=== PATIENT | female | born 1960 | race Caucasian/White ===

== ENCOUNTER 2020-06-22 09:59 | Inpatient (IN) | payer OTHER ==
[~2020-06-22] VITALS: Ht 170.2 cm; Wt 112.9 kg
[2020-06-22 11:03] LABS: BUN/CREATININE RATIO 18 (0-10)
[2020-06-22 11:52] LABS: HEMOGLOBIN 12.7 gm/dl (12.3-15.3); RED BLOOD COUNT 4.43 M/UL (4.00-5.10); WHITE BLOOD COUNT 7.4 K/UL (4.5-11.0)
[2020-06-22] MEDS ORDERED: VITAMIN D325 MCG PO (12:21)
[2020-06-22] MEDS ORDERED: VITAMIN C 500500 MG PO (12:22)
[2020-06-22] MEDS ORDERED: ZINC SULFATE220 MG PO (12:22)
[2020-06-23 05:12] LABS: HEMOGLOBIN 11.8 gm/dl (12.3-15.3); WHITE BLOOD COUNT 7.4 K/UL (4.5-11.0)
[2020-06-23 05:25] LABS: RED BLOOD COUNT 3.96 M/UL (4.00-5.10)
[2020-06-23 05:31] LABS: BUN/CREATININE RATIO 19 (0-10)
--- NOTE | 2020-06-23 23:00 | NUR ---
TRIED AIRVO WITH PT. PT REFUSED TO WEAR, STATED SHE COULD NOT HANDLE THE HEATED AIR.SHE STATED SHE COULD WEAR CPAP.
--- NOTE | 2020-06-23 23:30 | NUR ---
PT PLACED ON CPAP. PT ON FIO2 AT 90%. HER O2 SATS ARE 91-92%. TOLERATING CPAP WELL.
[2020-06-24 04:03] LABS: HEMOGLOBIN 11.9 gm/dl (12.3-15.3); RED BLOOD COUNT 3.99 M/UL (4.00-5.10)
[2020-06-24 04:07] LABS: WHITE BLOOD COUNT 9.5 K/UL (4.5-11.0)
[2020-06-24 04:33] LABS: BUN/CREATININE RATIO 27 (0-10)
[2020-06-25 02:44] LABS: HEMOGLOBIN 11.5 gm/dl (12.3-15.3); RED BLOOD COUNT 3.86 M/UL (4.00-5.10); WHITE BLOOD COUNT 9.4 K/UL (4.5-11.0)
[2020-06-25 03:18] LABS: BUN/CREATININE RATIO 25 (0-10)
--- NOTE | 2020-06-25 08:00 | NUR ---
PT STARTED COMPLAINING THAT BREATHING WAS TEE DIFFICULT. PT O2 STAT WAS AT A 88% WHEN WE WENT INTO THE ROOM. WE SAT THE PATIENT UP AND TRIED TO PUT HER ON THE HIGH FLOW NASAL CANNULA. SHE FELT IF SOMETHING WAS BOTHERING HER THROAT SO SHE TOOK A DRINK OF WATER. PT STATED THAT IT HELPED SOME AND THEN COUGHED UP SOME FLEM FROM THE BACK OF HER THROAT. ONCE SHE STARTED SHOWING IMPROVEMENT WITH HER OXYGEN STATS, WE THEN LET HER REST AND CALLED . WHERE HE TOLD ME TO SEND HER TO THE UNIT AND CALL PULMONOLOGY. WE THEN WAITED FOR THE PTS ROOM TO BE CLEAN AND TRANSPORTED THE PATIENT WIHT RESPIRATORY THERAPY PUSHING THE BIPAP. PT TOLERATED IT WELL AND WAS SCARED, AT THE TIME SHE WAS STABLE AND COHERENT.
--- NOTE | 2020-06-25 19:15 | NUR ---
SPOKE WITH REGARDING NEED FOR PLACEMENT OF CENTRAL VENOUS ACESS LINE AND ARTERIAL LINE. EXPLAINED PATIENT STATUS AND POTENTIAL NEED FOR HIGHER LEVEL OF CARE. VERBAL CONSENT OBTAINED FOR PLACEMENT OF CENTRAL LINE AND ARTERIAL LINE, WITNESSED BY RAMYA CAMPA RN.
--- NOTE | 2020-06-25 20:20 | NUR ---
SPOKE WITH PATIENTS BRENDA ABOUT PATIENT NEED FOR TRANSFER AGAIN TO HIGHER LEVEL OF CARE. DR BENNETT ALSO SPEAKS WITH AT THIS TIME REGARDING NEED FOR PULMONARY COVERAGE AND POTENTIAL FOR ECMO. CONSENTS TO TRANSFER, WITNESS BY MYSELF AND RAMYA CAMPA RN.
== END 2020-06-25 22:15 | disposition short-term general hospital (02) | DRG 208 ==
LOC: ER1 09:59 → CDU 12:02 → PROG CARE 06-23 14:42 → 2 EAST 06-25 11:41
PROVIDERS: Emergency Medicine; Pediatrics Pediatric Gastroenterology; ADMIT Internal Medicine
PROC: 8E0ZXY6 Isolation (ICD-10-PCS; principal; 2020-06-22)
PROC: XW13325 Transfusion of Convalescent Plasma (Nonautologous) into Peripheral Vein, Percutaneous Approach, New Technology Group 5 (ICD-10-PCS; 2020-06-22)
PROC: 5A09457 Assistance with Respiratory Ventilation, 24-96 Consecutive Hours, Continuous Positive Airway Pressure (ICD-10-PCS; 2020-06-23)
PROC: 5A1945Z Respiratory Ventilation, 24-96 Consecutive Hours (ICD-10-PCS; 2020-06-25)
PROC: XW033E5 Introduction of Remdesivir Anti-infective into Peripheral Vein, Percutaneous Approach, New Technology Group 5 (ICD-10-PCS; 2020-06-25)
PROC: 0BH17EZ Insertion of Endotracheal Airway into Trachea, Via Natural or Artificial Opening (ICD-10-PCS; 2020-06-25)
DX: U07.1 COVID-19 (principal); J12.82 Pneumonia due to coronavirus disease 2019; J80 Acute respiratory distress syndrome; I21.A1 Myocardial infarction type 2; Z87.891 Personal history of nicotine dependence; Z90.710 Acquired absence of both cervix and uterus; Z88.0 Allergy status to penicillin; Z82.49 Family history of ischemic heart disease and other diseases of the circulatory system; Z84.89 Family history of other specified conditions; Z90.49 Acquired absence of other specified parts of digestive tract; D64.9 Anemia, unspecified
CPT/HCPCS: 31500; 36415; 36430; 36600; 51702; 71045; 80053; 80061; 81001; 82550; 82553; 82728; 82803; 83605; 83735; 83874; 84100; 84484; 85025; 85027; 85379; 85610; 85730; 86140; 86900; 86901; 86927; 87040; 93005; 94002; 94640; 94660; 94664; 94760; 96365; 96366; 96367; 96372; 96375; 96376; 99285; J0456; J0696; J1100; J1650; J1940; J2185; J2250; J2370; J2704; J2930; J3010; J3370; J7030; J7050; J7070; U0002